=== PATIENT | female | born 1990 | race Caucasian/White ===

== ENCOUNTER 2016-05-29 09:36 | Outpatient (RCR) | payer MEDICAID | END 2016-06-16 | disposition home or self-care (01) | LOC: M OUTALCOH 09:36 | PROVIDERS: ATTEND Psychiatry & Neurology Psychiatry | DX: F16.20 Hallucinogen dependence, uncomplicated (principal); F14.20 Cocaine dependence, uncomplicated; F11.10 Opioid abuse, uncomplicated; F15.20 Other stimulant dependence, uncomplicated; F17.200 Nicotine dependence, unspecified, uncomplicated ==

== ENCOUNTER → 2016-11-12 | Outpatient (CLI) | payer MEDICAID | LOC: M OUTALCOH 07:34 | PROVIDERS: ATTEND Psychiatry & Neurology Psychiatry | DX: Z13.9 Encounter for screening, unspecified (principal); F16.20 Hallucinogen dependence, uncomplicated; F14.20 Cocaine dependence, uncomplicated; F11.20 Opioid dependence, uncomplicated; F15.20 Other stimulant dependence, uncomplicated ==

== ENCOUNTER 2016-12-08 09:00 | Outpatient (RCR) | payer MEDICAID | END 2016-12-14 | LOC: M OUTALCOH 09:00 | PROVIDERS: ATTEND Psychiatry & Neurology Psychiatry | DX: F16.20 Hallucinogen dependence, uncomplicated (principal); F14.20 Cocaine dependence, uncomplicated; F11.20 Opioid dependence, uncomplicated; F15.20 Other stimulant dependence, uncomplicated; F17.200 Nicotine dependence, unspecified, uncomplicated ==

== ENCOUNTER 2017-01-13 09:00 | Outpatient (RCR) | payer MEDICAID | END 2017-01-14 | LOC: M OUTALCOH 09:00 | PROVIDERS: ATTEND Psychiatry & Neurology Psychiatry | DX: F16.20 Hallucinogen dependence, uncomplicated (principal); F14.20 Cocaine dependence, uncomplicated; F11.20 Opioid dependence, uncomplicated; F15.20 Other stimulant dependence, uncomplicated; F17.200 Nicotine dependence, unspecified, uncomplicated ==

== ENCOUNTER 2017-01-29 10:00 | Outpatient (RCR) | payer MEDICAID | END 2017-02-13 | LOC: M OUTALCOH 10:00 | PROVIDERS: ATTEND Psychiatry & Neurology Psychiatry | DX: F16.20 Hallucinogen dependence, uncomplicated (principal); F14.20 Cocaine dependence, uncomplicated; F11.20 Opioid dependence, uncomplicated; F15.20 Other stimulant dependence, uncomplicated; F17.200 Nicotine dependence, unspecified, uncomplicated ==

== ENCOUNTER → 2017-05-14 | Outpatient (REF) | payer MEDICAID | LOC: M LAB REF 05-18 13:55 | DX: J02.9 Acute pharyngitis, unspecified (principal) ==

== ENCOUNTER → 2017-09-29 | Outpatient (CLI) | payer OTHER | LOC: M RAD 10:26 | DX: Z34.82 Encounter for supervision of other normal pregnancy, second trimester (principal); Z3A.18 18 weeks gestation of pregnancy | CPT/HCPCS: 76811 ==

== ENCOUNTER → 2017-10-13 | Outpatient (CLI) | payer OTHER | LOC: M RAD 10:11 | DX: Z34.82 Encounter for supervision of other normal pregnancy, second trimester (principal) | CPT/HCPCS: 76816 ==

== ENCOUNTER → 2017-12-06 | Outpatient (CLI) | payer OTHER ==
[2017-12-06 13:35] LABS: HEMATOCRIT 36.4 % (36.0-47.0); HEMOGLOBIN 12.3 g/dl (12.0-15.5); MEAN CORPUSCULAR HGB CONC 33.8 g/dl (32.0-36.5); MEAN CORPUSCULAR VOLUME 88.8 fl (80.0-96.0); PLATELET COUNT, AUTOMATED 265 10^3/uL (150-450); WHITE BLOOD COUNT 15.5 10^3/uL (4.0-10.0)
[2017-12-06 14:03] LABS: GLUCOSE CHALLENGE TEST 1 HOUR 150 MG/DL (LESS THAN 140)
== END ==
LOC: M SMT 10:09
DX: Z34.82 Encounter for supervision of other normal pregnancy, second trimester (principal); Z36.89 Encounter for other specified antenatal screening
CPT/HCPCS: 82950

== ENCOUNTER → 2018-01-27 | Outpatient (REF) | payer OTHER | LOC: M LAB REF 17:26 | DX: Z34.03 Encounter for supervision of normal first pregnancy, third trimester (principal); Z36.85 Encounter for antenatal screening for Streptococcus B | CPT/HCPCS: 87081 ==

== ENCOUNTER → 2018-02-01 | Outpatient (CLI) | payer OTHER ==
[2018-02-01 09:06] LABS: GLUCOSE, FASTING 97 MG/DL (LESS THAN 95)
[2018-02-01 11:01] LABS: 1 HR GLUCOSE 183 MG/DL (LESS THAN 180)
[2018-02-01 11:08] LABS: 2 HR GLUCOSE 175 MG/DL (LESS THAN 155)
[2018-02-01 12:45] LABS: 3 HR GLUCOSE 105 MG/DL (LESS THAN 140)
== END ==
LOC: M LAB 08:02
DX: Z34.83 Encounter for supervision of other normal pregnancy, third trimester (principal); R73.02 Impaired glucose tolerance (oral)
CPT/HCPCS: 82951

== ENCOUNTER → 2018-02-22 | Outpatient (REF) | payer OTHER ==
[2018-02-22 19:25] LABS: TOTAL PROTEIN,RANDOM URINE 36.4 MG/DL (0.0-12.0)
== END ==
LOC: M LAB REF 16:37
DX: R03.0 Elevated blood-pressure reading, without diagnosis of hypertension (principal); O24.429 Gestational diabetes mellitus in childbirth, unspecified control

== ENCOUNTER 2018-02-24 09:32 | Inpatient (IN) | payer OTHER ==
[2018-02-24 11:23] LABS: HEMATOCRIT 37.9 % (36.0-47.0); HEMOGLOBIN 12.8 g/dl (12.0-15.5); MEAN CORPUSCULAR HEMOGLOBIN 29.3 pg (27.0-33.0); MEAN CORPUSCULAR HGB CONC 33.8 g/dl (32.0-36.5); MEAN CORPUSCULAR VOLUME 86.7 fl (80.0-96.0); PLATELET COUNT, AUTOMATED 273 10^3/uL (150-450); RED BLOOD COUNT 4.37 10^6/uL (4.00-5.40); RED CELL DISTRIBUTION WIDTH 12.8 % (11.5-14.5); WHITE BLOOD COUNT 15.8 10^3/uL (4.0-10.0)
[2018-02-24 11:43] LABS: ALT/SGPT 13 U/L (12-78); AST/SGOT 13 U/L (7-37); BILIRUBIN,TOTAL 0.3 MG/DL (0.2-1.0); CREATININE FOR GFR 0.61 MG/DL (0.55-1.30); GLOMERULAR FILTRATION RATE > 60.0 (>60); LDH LACTATE DEHYDROGENASE 193 U/L (84-246); URIC ACID 4.4 MG/DL (2.6-6.0)
[2018-02-24] MEDS: miSOPROStol 50 MCG 1/2 TAB (S0191) PO ×2 (11:52→16:15)
[2018-02-24] MEDS: miSOPROStol 50 MCG 1/2 TAB (S0191) PV (20:37)
[2018-02-24] MEDS: BUTORPHANOL 2 MG/ML INJ (J0595) IV (22:30)
[2018-02-25] MEDS: miSOPROStol 50 MCG 1/2 TAB (S0191) PO (02:14)
[2018-02-25 07:49] LABS: HEMATOCRIT 37.1 % (36.0-47.0); HEMOGLOBIN 12.6 g/dl (12.0-15.5); MEAN CORPUSCULAR HEMOGLOBIN 29.6 pg (27.0-33.0); MEAN CORPUSCULAR VOLUME 87.1 fl (80.0-96.0); PLATELET COUNT, AUTOMATED 230 10^3/uL (150-450); RED BLOOD COUNT 4.26 10^6/uL (4.00-5.40); RED CELL DISTRIBUTION WIDTH 12.8 % (11.5-14.5); WHITE BLOOD COUNT 14.8 10^3/uL (4.0-10.0)
[2018-02-25 08:25] LABS: ALT/SGPT 10 U/L (12-78); AST/SGOT 13 U/L (7-37); BILIRUBIN,TOTAL 0.4 MG/DL (0.2-1.0); GLOMERULAR FILTRATION RATE > 60.0 (>60); LDH LACTATE DEHYDROGENASE 163 U/L (84-246); URIC ACID 4.5 MG/DL (2.6-6.0)
[2018-02-25] MEDS: PRENATAL VITAMINS CHEWABLE TABLET PO (09:00)
[2018-02-25] MEDS ORDERED: LR 1,000 ML IV (09:00)
[2018-02-25] MEDS: AZITHROMYCIN INJ 500 MG, VIAL MATE ADAPTER 1 EACH in D5W 250 ML IV (09:44)
[2018-02-25] MEDS: BICITRA 30ML SOLN UDC PO (10:28)
[2018-02-25] MEDS ORDERED: MORPHINE PRES-FREE INJ 10 MG/10 ML VIAL (J2274) As Ordered (10:29)
[2018-02-25] MEDS ORDERED: fentaNYL 100 MCG/2 ML INJECTION (J3010) As Ordered (10:30)
[2018-02-25] MEDS ORDERED: FLUMAZENIL 0.5 MG/5 ML VIAL As Ordered (10:30)
[2018-02-25] MEDS ORDERED: ONDANSETRON 4MG/2ML VIAL (J2405) As Ordered (10:31)
[2018-02-25] MEDS ORDERED: PHENYLephrine HCL 500 MCG/5 ML (100MCG/ML) SYRINGE (J2370) As Ordered (11:24)
[2018-02-25 11:25] LABS: CORD GAS ABE A -2.1; CORD GAS HCO3 A 26.6 MEQ/L; CORD GAS PCO2 A 62.3 mmHg; CORD GAS PH A 7.249 UNITS; CORD GAS PO2 A 22.9 mmHg; CORD GAS SBC A 21.4 MEQ/L; CORD GAS TCO2 A 28.6 MEQ/L
[2018-02-25 11:26] LABS: CORD GAS ABE V -2.7; CORD GAS HCO3 V 23.4 MEQ/L; CORD GAS O2 SAT V 84.8 %; CORD GAS PCO2 V 45.3 mmHg; CORD GAS PH V 7.331 UNITS; CORD GAS PO2 V 43.5 mmHg; CORD GAS SBC V 21.9 MEQ/L; CORD GAS TCO2 V 24.8 MEQ/L
[2018-02-25] MEDS ORDERED: KETOROLAC 60 MG/2 ML VIAL (J1885) As Ordered (11:34)
[2018-02-25] MEDS: OXYTOCIN DRIP 30 UNITS in APPROPRIATE DILUENT 1 EA IV (11:42)
[2018-02-25] MEDS ORDERED: MEASLES,MUMPS,RUBELLA VACCINE INJ (MMR-II) (90707) SC (11:45)
[2018-02-25] MEDS ORDERED: MOM 30ML SUSPENSION UDC PO (11:45)
[2018-02-25] MEDS ORDERED: RHOGAM 300 MCG (1500 IU) INJ (J2790) IM (11:45)
[2018-02-25] MEDS ORDERED: PERCOCET 5MG/325MG TAB PO (12:15)
[2018-02-25] MEDS: LR 1,000 ML IV ×2 (12:15→13:30)
[2018-02-25] MEDS ORDERED: fentaNYL 100 MCG/2 ML INJECTION (J3010) IV (12:15)
[2018-02-25] MEDS ORDERED: ONDANSETRON 4MG/2ML VIAL (J2405) IV (12:15)
[2018-02-25] MEDS: NORCO, ANEXSIA 5/325MG TABLET (HYDROcodone/ACETAMINOPHEN) PO (18:55)
[2018-02-25] MEDS: IBUPROFEN 800 MG TAB PO (20:41)
[2018-02-25] MEDS: DOCUSATE SODIUM 100 MG CAP PO (20:41)
[2018-02-26] MEDS: IBUPROFEN 800 MG TAB PO ×3 (03:45→20:48)
[2018-02-26 07:01] LABS: HEMATOCRIT 32.2 % (36.0-47.0); HEMOGLOBIN 10.7 g/dl (12.0-15.5); MEAN CORPUSCULAR HEMOGLOBIN 29.4 pg (27.0-33.0); MEAN CORPUSCULAR HGB CONC 33.2 g/dl (32.0-36.5); MEAN CORPUSCULAR VOLUME 88.5 fl (80.0-96.0); PLATELET COUNT, AUTOMATED 242 10^3/uL (150-450); RED BLOOD COUNT 3.64 10^6/uL (4.00-5.40); RED CELL DISTRIBUTION WIDTH 12.9 % (11.5-14.5); WHITE BLOOD COUNT 14.2 10^3/uL (4.0-10.0)
[2018-02-26] MEDS: PRENATAL VITAMINS CHEWABLE TABLET PO (08:09)
[2018-02-26] MEDS: DOCUSATE SODIUM 100 MG CAP PO ×2 (08:09→20:47)
[2018-02-26] MEDS: NORCO, ANEXSIA 5/325MG TABLET (HYDROcodone/ACETAMINOPHEN) PO ×2 (10:06→19:32)
[2018-02-27] MEDS: IBUPROFEN 800 MG TAB PO (04:01)
[2018-02-27] MEDS: NORCO, ANEXSIA 5/325MG TABLET (HYDROcodone/ACETAMINOPHEN) PO ×2 (04:02→09:56)
[2018-02-27] MEDS: PRENATAL VITAMINS CHEWABLE TABLET PO (09:55)
[2018-02-27] MEDS: DOCUSATE SODIUM 100 MG CAP PO (09:56)
[2018-02-27] MEDS: ADACEL/BOOSTRIX VACCINE (DIPHTH/PERTUSS/ACELL/TETANUS)0.5ML SYR (90715) IM (10:37)
== END 2018-02-27 10:40 | disposition home or self-care (01) | DRG 540 ==
LOC: M LDI 09:32 → M OBS 02-25 14:31
PROVIDERS: Advanced Practice Midwife
PROC: 10D00Z1 Extraction of Products of Conception, Low, Open Approach (ICD-10-PCS; principal; 2018-02-25 10:52)
PROC: 3E0P7GC Introduction of Other Therapeutic Substance into Female Reproductive, Via Natural or Artificial Opening (ICD-10-PCS; 2018-02-25 10:52)
DX: O14.94 Unspecified pre-eclampsia, complicating childbirth (principal); F17.210 Nicotine dependence, cigarettes, uncomplicated; O99.334 Smoking (tobacco) complicating childbirth; Z3A.39 39 weeks gestation of pregnancy; O61.0 Failed medical induction of labor; O32.8XX0 Maternal care for other malpresentation of fetus, not applicable or unspecified; Z37.0 Single live birth

== ENCOUNTER → 2019-11-02 | Outpatient (REF) | payer OTHER ==
[~2019-11-02] MED LIST: IBUP80TA PO; PERCOCET PO; PRENTAB9 PO
[2019-11-02 18:45] LABS: HEMATOCRIT 42.3 % (36.0-47.0); HEMOGLOBIN 14.2 g/dl (12.0-15.5); MEAN CORPUSCULAR HEMOGLOBIN 29.5 pg (27.0-33.0); MEAN CORPUSCULAR HGB CONC 33.6 g/dl (32.0-36.5); MEAN CORPUSCULAR VOLUME 87.9 fl (80.0-96.0); PLATELET COUNT, AUTOMATED 306 10^3/uL (150-450); RED BLOOD COUNT 4.81 10^6/uL (4.00-5.40); WHITE BLOOD COUNT 12.5 10^3/uL (4.0-10.0)
[2019-11-02 19:42] LABS: HCG, SERUM QUANTITATIVE 31550 MIU/ML
[2019-11-03 17:17] LABS: HEPATITIS B SURFACE ANTIGEN NEGATIVE (NEGATIVE)
[2019-11-03 17:45] LABS: HEPATITIS C VIRUS ABY INDEX 0.2 INDEX (<0.8); HIV 1&2 SCREEN CENTAUR NEGATIVE (NEGATIVE)
== END ==
LOC: M LAB REF 16:17
PROVIDERS: ATTEND Obstetrics & Gynecology
DX: O36.80X0 Pregnancy with inconclusive fetal viability, not applicable or unspecified (principal)

== ENCOUNTER → 2020-01-09 | Outpatient (REF) | payer OTHER ==
[2020-01-09 17:15] LABS: CHLAMYDIA DNA AMPLIFICATION NEGATIVE (NEGATIVE); GC DNA AMPLIFICATION NEGATIVE (NEGATIVE)
== END ==
LOC: M LAB REF 11:00
PROVIDERS: ATTEND Advanced Practice Midwife
DX: Z00.00 Encounter for general adult medical examination without abnormal findings (principal)

== ENCOUNTER → 2020-01-15 | Outpatient (CLI) | payer OTHER ==
--- NOTE | 2020-02-12 09:35 | REP ---
COMPLETE OBSTETRICAL ULTRASOUND CLINICAL: Anatomical evaluation. TECHNIQUE: Real-time dietz scale and color Doppler evaluation using curved array transducer. FINDINGS: Ultrasound examination demonstrates single live intrauterine in transverse lie with headache to maternal right. Placenta noted posteriorly and grade 0. No evidence for placenta previa or abruption. Amniotic fluid volume is subjectively normal. Cervix measures 4.1 cm in length and appears closed. Gestational age by last menstrual period (LMP) 20 weeks 1 day with estimated date of delivery 06/02/2020. heart rate 150 beats per minute. MEASURES: BPD 46 mm 20 weeks 0 days HC 173 mm 20 weeks 0 days AC 150 mm 20 weeks 2 days FL 31 mm 20 weeks 3 days HL 30 mm 20 weeks 0 day Estimated age by current measurements 20 weeks 1 day with estimated date of delivery 06/02/2020. Estimated weight 330 grams (41st percentile). Anatomical assessment demonstrates normal cisterna magna, cavum, thalamus, stomach, kidney/bladder, four chamber heart/ventricular outflow tract, three- vessel cord/cord insertion, and extremities. Limited evaluation of the spine and facial features noted. IMPRESSION: Single live intrauterine in transverse lie demonstrating appropriate interval growth. Limited evaluation of the spine and facial features warrants reevaluation. Remainder of the anatomical assessment is complete and normal. MTDD
== END ==
LOC: M WHC 13:25
PROVIDERS: ATTEND Advanced Practice Midwife
DX: Z34.80 Encounter for supervision of other normal pregnancy, unspecified trimester (principal); Z3A.00 Weeks of gestation of pregnancy not specified

== ENCOUNTER → 2020-01-29 | Outpatient (CLI) | payer OTHER ==
[2020-01-29 15:03] LABS: HEMATOCRIT 39.5 % (36.0-47.0); MEAN CORPUSCULAR HEMOGLOBIN 29.4 pg (27.0-33.0); MEAN CORPUSCULAR HGB CONC 32.9 g/dl (32.0-36.5); MEAN CORPUSCULAR VOLUME 89.4 fl (80.0-96.0); PLATELET COUNT, AUTOMATED 310 10^3/uL (150-450); RED BLOOD COUNT 4.42 10^6/uL (4.00-5.40); WHITE BLOOD COUNT 17.3 10^3/uL (4.0-10.0)
== END ==
LOC: M PLALAB 11:35
PROVIDERS: ATTEND Advanced Practice Midwife
DX: O99.210 Obesity complicating pregnancy, unspecified trimester (principal); Z3A.00 Weeks of gestation of pregnancy not specified

== ENCOUNTER → 2020-03-01 | Outpatient (CLI) | payer OTHER ==
--- NOTE | 2020-03-01 12:22 | REP ---
INDICATION: F/U ANATOMY COMPARISON: 01/15/2020 TECHNIQUE: Transabdominal obstetrical ultrasound with color Doppler evaluation. FINDINGS: Examination demonstrates a single live intrauterine in cephalic presentation. motion is identified by technologist. Placenta is noted posterior and grade 1 without evidence for placenta previa or abruption. Amniotic fluid volume is normal. Cervix measures 3.0 cm in length and appears closed. Nuchal cord noted. Gestational age by 1st U/S 26 weeks 4 days with MINA 06/03/2020. Gestational age by current measurements 26 weeks 3 days with MINA 06/04/2020. FHR equals 144 beats per minute. Estimated weight 951 grams (32ndpercentile). Anatomical assessment demonstrates normal spine, and facial features. IMPRESSION: 1. Single live intrauterine in cephalic presentation demonstrating appropriate interval growth and estimated weight. 2. Nuchal cord noted. 3. Current examination demonstrates normal spine and facial features. <Electronically signed by Ancelmo Figueroa > 03/01/20 [id number]
== END ==
LOC: M WHC 08:32
PROVIDERS: ATTEND Obstetrics & Gynecology
DX: O34.211 Maternal care for low transverse scar from previous cesarean delivery (principal); Z36.2 Encounter for other antenatal screening follow-up; Z3A.26 26 weeks gestation of pregnancy

== ENCOUNTER → 2020-04-08 | Outpatient (CLI) | payer OTHER ==
--- NOTE | 2020-04-08 11:45 | REP ---
INDICATION: GESTATIONAL DIABETEES,GROWTH COMPARISON: 03/01/2020 TECHNIQUE: Transabdominal obstetrical ultrasound with color Doppler evaluation. FINDINGS: Examination demonstrates a single live intrauterine in cephalic presentation. motion is identified by technologist. Placenta is noted posterior and grade 2 without evidence for placenta previa or abruption. Amniotic fluid volume is normal. Cervix measures 3.3 cm in length and appears closed.. Gestational age by 1st ultrasound 32 weeks 0 days with MINA 06/03/2020. Gestational age by current measurements 32 weeks 2 days with MINA 06/01/2020. FHR equals 140 beats per minute. BPD: 7.9 cm 31 weeks 5 days HC: 29.8 cm 33 weeks 0 days AC: 28.6 cm 32 weeks 4 days FL: 6.1 cm 31 weeks 5 days HL: 5.7 cm 32 weeks 6 days HC/AC: 1.04 Estimated weight 1942 grams (44thpercentile). ELIZABETH: 16.2 cm (8.6-24.2) IMPRESSION: Single live advanced gestation in cephalic presentation demonstrating appropriate estimated weight and growth. Amniotic fluid volume is normal. <Electronically signed by Ancelmo Figueroa > 04/08/20 [id number]
== END ==
LOC: M WHC 10:57
PROVIDERS: ATTEND Advanced Practice Midwife
DX: O24.415 Gestational diabetes mellitus in pregnancy, controlled by oral hypoglycemic drugs (principal); Z3A.32 32 weeks gestation of pregnancy

== ENCOUNTER → 2020-05-07 | Outpatient (REF) | payer OTHER | LOC: M PLALAB 12:10 | PROVIDERS: ATTEND Obstetrics & Gynecology | DX: Z53.29 Procedure and treatment not carried out because of patient's decision for other reasons (principal); Z3A.36 36 weeks gestation of pregnancy ==

== ENCOUNTER → 2020-05-07 | Outpatient (REF) | payer OTHER | LOC: M SFHCWAGY 17:00 | PROVIDERS: ATTEND Obstetrics & Gynecology | DX: Z36.89 Encounter for other specified antenatal screening (principal); Z3A.37 37 weeks gestation of pregnancy ==

== ENCOUNTER → 2020-05-15 | Outpatient (CLI) | payer OTHER ==
--- NOTE | 2020-05-15 15:07 | REP ---
INDICATION: GROWTH/ELIZABETH/GESTATIONAL DIABETES COMPARISON: 04/08/2020 TECHNIQUE: Transabdominal obstetrical ultrasound with color Doppler evaluation. FINDINGS: Examination demonstrates a single live intrauterine in cephalic presentation. motion is identified by technologist. Placenta is noted posterior and grade 3 without evidence for placenta previa or abruption. Amniotic fluid volume is normal. Cervix measures 3.8 cm in length and appears closed.. Gestational age by LMP thirty-seven weeks 2 days with MINA 06/03/2020. Gestational age by current measurements 36 weeks 5 days with MINA 06/07/2020. FHR equals 132 beats per minute. BPD: 9.3 cm 37 weeks 5 days HC: 32.4 cm 36 weeks 4 days AC: 32.9 cm 36 weeks 5 days FL: 7.1 cm 36 weeks 3 days HL: 6.2 cm 35 weeks 6 days HC/AC: 0.98 Estimated weight 3029 grams (41stpercentile). ELIZABETH: 13.4 cm (7.4-24.2) IMPRESSION: Single live advanced gestation in cephalic presentation demonstrating appropriate estimated weight and growth. <Electronically signed by Ancelmo Figueroa > 05/15/20 [id number]
== END ==
LOC: M WHC 13:32
PROVIDERS: ATTEND Advanced Practice Midwife
DX: Z36.9 Encounter for antenatal screening, unspecified (principal); O24.415 Gestational diabetes mellitus in pregnancy, controlled by oral hypoglycemic drugs; Z3A.37 37 weeks gestation of pregnancy

== ENCOUNTER 2020-05-27 07:30 | Inpatient (IN) | payer OTHER ==
[~2020-05-27] VITALS: Ht 154.9 cm; Wt 116.6 kg
[~2020-05-27 07:30] MED LIST changes: -NOVOINJ12 SC
[2020-05-28] MEDS ORDERED: NOVOINJ12 SC (09:12)
[2020-05-30] MEDS ORDERED: ceFAZolin SOD 2 GM in IV 1 EA IV ONE (05:30)
[2020-05-30] MEDS ORDERED: LR 1,000 ML IV ONE (05:30)
[2020-05-30] MEDS ORDERED: BICITRA 30ML SOLN UDC PO ONE (05:30)
[2020-05-30] MEDS ORDERED: LR 1,000 ML IV SCH (05:30)
[2020-05-30 06:02] LABS: HEMATOCRIT 37.4 % (36.0-47.0); HEMOGLOBIN 12.1 g/dl (12.0-15.5); MEAN CORPUSCULAR HEMOGLOBIN 27.8 pg (27.0-33.0); MEAN CORPUSCULAR HGB CONC 32.4 g/dl (32.0-36.5); MEAN CORPUSCULAR VOLUME 85.8 fl (80.0-96.0); PLATELET COUNT, AUTOMATED 279 10^3/uL (150-450); RED BLOOD COUNT 4.36 10^6/uL (4.00-5.40); WHITE BLOOD COUNT 14.6 10^3/uL (4.0-10.0)
[2020-05-30] MEDS ORDERED: MORPHINE PRES-FREE INJ 10 MG/10 ML VIAL (J2274) As Ordered ONE (07:07)
[2020-05-30] MEDS ORDERED: LIDOCAINE 2% INJ 100 MG/5 ML SYRINGE As Ordered ONE (07:07)
[2020-05-30] MEDS ORDERED: OXYTOCIN 30 UNITS IN 0.9% NaCl 500ML IV BAG (J2590) As Ordered ONE (07:08)
[2020-05-30] MEDS ORDERED: OXYTOCIN INJ 10 UNITS/ML VIAL (J2590) As Ordered ONE (07:08)
[2020-05-30] MEDS ORDERED: ePHEDrine SULFATE 25 MG/5 ML(5MG/ML) SYRINGE As Ordered ONE (07:09)
[2020-05-30] MEDS ORDERED: dexameTHASONE 4 MG/ML 1ML VIAL (J1100 PER 1MG) As Ordered ONE (07:09)
[2020-05-30] MEDS ORDERED: ONDANSETRON 4MG/2ML VIAL As Ordered ONE (07:09)
[2020-05-30] MEDS ORDERED: KETOROLAC 60MG 2ML VIAL As Ordered ONE (07:09)
[2020-05-30] MEDS ORDERED: METOCLOPRAMIDE INJ 10MG/2ML VIAL (J2765 PER 1) IV PRN ×2 (07:47→09:45)
[2020-05-30] MEDS ORDERED: ONDANSETRON 4MG/2ML VIAL IV PRN ×2 (07:47→09:45)
[2020-05-30] MEDS ORDERED: diphenhydrAMINE 50MG/ML VIAL (J1200) IV PRN ×2 (07:47→09:45)
[2020-05-30] MEDS ORDERED: NALBUPHINE HCL 10 MG/ML AMP (J2300) IV PRN (07:47)
[2020-05-30] MEDS ORDERED: NALOXONE INJ 0.4MG/1ML VIAL (J2310 PER 1MG) IV PRN ×2 (07:47)
[2020-05-30] MEDS: PRENATAL VITAMINS CHEWABLE TABLET PO SCH (09:00)
[2020-05-30] MEDS ORDERED: OXYTOCIN DRIP 30 UNITS in IV 1 EA IV SCH (09:34)
[2020-05-30] MEDS ORDERED: fentaNYL 100 MCG/2 ML INJECTION (J3010) IV PRN (09:45)
[2020-05-30] MEDS ORDERED: HYDROMORPHONE HCL 0.5 MG/ 0.5 ML SYRINGE (J1170 PER 1) IV PRN (09:45)
[2020-05-30] MEDS ORDERED: MEPERIDINE INJ 25 MG/ML VIAL (J2175) IV PRN (09:45)
[2020-05-30] MEDS ORDERED: PERCOCET 5MG/325MG TAB PO PRN ×2 (09:45)
[2020-05-30] MEDS ORDERED: RHOGAM 300 MCG (1500 IU) INJ (J2790) IM SCH (09:45)
[2020-05-30] MEDS ORDERED: MEASLES,MUMPS,RUBELLA VACCINE INJ (MMR-II) (90707) SC SCH (09:45)
[2020-05-30] MEDS ORDERED: ONDANSETRON 4 MG ORAL DISINTEGRATING TAB PO PRN (09:45)
[2020-05-30 11:10] VITALS: BP 134/67
[2020-05-30 11:59] VITALS: BP 116/57
[2020-05-30 13:13] VITALS: BP 121/58
[2020-05-30 14:08] VITALS: BP 128/66
--- NOTE | 2020-05-30 14:44 | RO ---
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 PREOPERATIVE DIAGNOSES: 1. History of prior section at term. 2. Satisfied parity. POSTOPERATIVE DIAGNOSES: 1. History of prior section at term. 2. Satisfied parity. PROCEDURES: 1. Repeat low transverse section. 2. [place] bilateral tubal ligation. MATERIAL FORWARDED TO THE LAB FOR EXAMINATION: Portions of bilateral fallopian tubes. SURGEON: Dr. Elsie Araya. NEONATAL CRITICAL CARE NURSE: Dr. Ramy Pinto whose assistance was necessary for exposure/retraction. He helped assist with the delivery of the baby and subsequent closure of tissue layers. ANESTHESIA: spinal INDICATION FOR OPERATION: Nerissa is a 29-year-old G2, now P2-0-0-2 at 39 weeks 4 days with a history of a prior section desiring repeat. She also had satisfied parity and desired a tubal ligation, which we had discussed during her . course significant for A2 GDM which was managed with insulin, obesity, and tobacco use. DESCRIPTION OF PROCEDURE FINDINGS: Infant was in OA position, Apgars 8 and 9, weight 3680 grams or 8 pounds 2 ounces. She had normal appearing uterus, ovaries, and fallopian tubes. INFECTION CLASS: 2. ESTIMATED BLOOD LOSS: 500 mL. FLUIDS: 2500 mL of Lactated Ringers. URINE OUTPUT: 30 mL of yellow clear urine. DESCRIPTION OF PROCEDURE: The patient was taken to the operating room. She had a reactive NST prior. Spinal anesthesia was administered. Dorsey and bilateral sequential compression devices were placed. She received 2 grams of IV Ancef prophylactically. She was prepped and draped in normal sterile fashion in the dorsal supine position with a left lateral tilt. Time out was performed to confirm patient name, date of , and procedure and indication. Surgical team, nursing team, and anesthesia were all in agreement. Spinal anesthesia was found to be adequate using an Allis clamp. Pfannenstiel skin incision was made with a scalpel and carried through to the underlying layer of fascia using the Bovie cautery. Fascia was incised in the midline, and the incision was extended laterally with [place] scissors. Superior and inferior aspects of the fascial incision were grasped with Emil clamps, elevated, and the underlying rectus muscles were dissected off bluntly and sharply. Peritoneum was entered digitally, and the rectus muscles were in the midline. Peritoneal incision was extended superiorly and inferiorly with good visualization of the bladder. We inserted a Mobius self-retaining retractor to assist. Vesicouterine peritoneum was identified, grasped with pickups, and entered sharply with Metzenbaum scissors. The incision was extended laterally, and a bladder flap was created digitally. Lower uterine segment was scored in a transverse fashion with a scalpel. Uterus was entered bluntly, and the incision was extended with traction with clear amniotic fluid noted. 's head was elevated to the level of the incision. Fundal pressure was applied. Head was delivered atraumatically in the OA position. Anterior shoulder, posterior shoulder, and corpus were delivered without difficulty. Nose and mouth were suctioned with bulb suction. Cord was clamped x2 and cut. Infant was handed off to the awaiting nursing team. Cord blood was obtained for maternal blood type. Placenta was removed with uterine massage and traction on the cord. Uterus was exteriorized to remove some sticky adherent membranes which were removed in their entirety. The uterus was cleared of all clot and debris. Uterine incision was repaired with 0 Vicryl suture in a running locking fashion, and a second layer of 0 Monocryl was used to close the hysterotomy in an imbricating fashion. Uterine incision was inspected. Hemostasis was noted. At this time, right and left fallopian tubes were visualized without abnormality. [place] tubal ligation was performed on the right followed by the left fallopian tube using 0 plain gut suture. Transected portions of the fallopian tube were sent off to pathology. Uterus was returned to the abdomen. All clot was cleared. Liseth was applied to hysterotomy. Hemostasis was noted. Mobius retractor removed. Peritoneum was closed using 3-0 Vicryl suture in a running fashion. Rectus muscles were reapproximated with [id number] sutures using 0 Vicryl suture. Fascia was reapproximated with 0 Vicryl suture in a running fashion. Subcutaneous tissue was copiously irrigated. Jair's fascia was reapproximated using 3-0 Vicryl suture in a running fashion. Skin edges were reapproximated using 4-0 Monocryl in a running subcuticular stitch. Incision was cleaned with a wet lap and dried with a dry lap. Steri-Strips were applied in the usual fashion, and Optifoam dressing was applied over the Steri-Strips. Vagina was cleared of all blood clot without active bleeding noted. Fundus was firm at U-1 cm. All counts were correct x2. The procedure was without complications. Patient tolerated the procedure well. She was taken to the recovery room on Labor and Delivery in stable condition. KEERTHI
[2020-05-30] MEDS: KETOROLAC 30 MG/ML 1ML VIAL IV SCH ×2 (16:03→20:04)
[2020-05-30 18:11] VITALS: BP 123/87
[2020-05-30] MEDS: DOCUSATE SODIUM 100MG CAPSULE PO SCH (20:04)
[2020-05-30 22:05] VITALS: BP 144/61
[2020-05-31 02:00] VITALS: BP 147/69
[2020-05-31] MEDS: KETOROLAC 30 MG/ML 1ML VIAL IV SCH (03:45)
[2020-05-31] MEDS ORDERED: IBUP80TA PO (04:39)
[2020-05-31] MEDS ORDERED: DOK1CAP7 PO (04:39)
[2020-05-31] MEDS ORDERED: PERCOCET PO (04:39)
[2020-05-31 05:44] VITALS: BP 144/74
--- NOTE | 2020-05-31 06:47 | IPNPDOC ---
Progress Note Date of Service: May 31, 2020 Day#: 1 Progress Note POD 1/PPD 1 SUBJECT: Nerissa is a 29yo s/p uncomplicated RLTCS with BTL on 05/30, doing well post-op/ day # 1. PMhx significant for A2GDM and obesity. She has been ambulating, voiding spontaneously without issue and tolerating regular diet. Bottle feeding without issue. Reports lochia is like a normal period. Pain well controlled. No fevers/chills/nausea/vomiting/chest pain/shortness of breath. No MORLEY/vision changes/RUQ pain. OBJECTIVE: VITAL SIGNS: BP's normal to mild range, afebrile. Alert and oriented times three. Abdomen: Fundus firm at U-2. Soft, appropriately tender to palpation. Pfannenstiel incision is covered by dry optifoam dressing, no obvious erythema of surrounding tissue Extremities: no pain with palpation of calves Labs: pre-op H/H 12.1/37.4 post-op H/H pending ASSESSMENT: Nerissa is a 29yo s/p uncomplicated RLTCS with BTL on 05/30, doing well post-op/ day # 1. PMhx significant for A2GDM and obesity. BP's normal to mild range but no sx of pre-E. Afebrile, hemodynamically stable with no evidence of infection. PLAN: 1. Routine /post-op care 2. Percocet and Motrin for pain. 3. Encourage ambulation and use of IS 4. Regular diet 5. am CBC with CMP to check creatinine/LFTs 2/2 mild range bp's 6. Likely d/c tomorrow if meeting all criteria Elsie Araya MD VS, I&O, 24H, Fishbone Vital Signs/I&O Vital Signs Date Time Temp Pulse Resp B/P (MAP) Pulse Ox O2 Delivery O2 Flow Rate FiO2 05/31/20 05:44 98.6 94 20 144/74 (97) 97 Room Air I&O- Last 24 Hours up to 6 AM 05/31/20 06:00 Intake Total 1380 ml Output Total 1150 ml Balance 230 ml Elsie Araya MD May 31, 2020 06:47
[2020-05-31 07:23] LABS: HEMATOCRIT 29.9 % (36.0-47.0); MEAN CORPUSCULAR HEMOGLOBIN 28.2 pg (27.0-33.0); MEAN CORPUSCULAR HGB CONC 32.1 g/dl (32.0-36.5); MEAN CORPUSCULAR VOLUME 87.7 fl (80.0-96.0); PLATELET COUNT, AUTOMATED 232 10^3/uL (150-450); RED BLOOD COUNT 3.41 10^6/uL (4.00-5.40); WHITE BLOOD COUNT 12.8 10^3/uL (4.0-10.0)
[2020-05-31 07:35] LABS: HEMOGLOBIN 9.6 g/dl (12.0-15.5)
[2020-05-31 07:50] LABS: ALT/SGPT 14 U/L (12-78); BILIRUBIN,TOTAL 0.4 MG/DL (0.2-1.0); BLOOD UREA NITROGEN 12 MG/DL (7-18); CALCIUM LEVEL 8.6 MG/DL (8.5-10.1); CARBON DIOXIDE LEVEL 27 MEQ/L (21-32); CHLORIDE LEVEL 105 MEQ/L (98-107); CREATININE FOR GFR 0.73 MG/DL (0.55-1.30); GLOMERULAR FILTRATION RATE > 60.0 (>60); GLUCOSE, FASTING 77 MG/DL (70-100); POTASSIUM SERUM 4.1 MEQ/L (3.5-5.1); SODIUM LEVEL 137 MEQ/L (136-145); TOTAL PROTEIN 5.4 GM/DL (6.4-8.2)
[2020-05-31] MEDS: PRENATAL VITAMINS CHEWABLE TABLET PO SCH (08:06)
[2020-05-31] MEDS: DOCUSATE SODIUM 100MG CAPSULE PO SCH ×2 (08:06→21:51)
[2020-05-31 10:00] VITALS: BP 130/60
[2020-05-31] MEDS: IBUPROFEN 800 MG TAB PO SCH ×2 (11:09→19:44)
[2020-05-31] MEDS: PERCOCET 5MG/325MG TAB PO PRN ×2 (11:58→16:56)
[2020-05-31 14:00] VITALS: BP 139/71
[2020-05-31 18:00] VITALS: BP 128/72
[2020-05-31 22:00] VITALS: BP 152/78
[2020-06-01] MEDS: PERCOCET 5MG/325MG TAB PO PRN (00:12)
[2020-06-01 02:00] VITALS: BP 139/76
[2020-06-01] MEDS: IBUPROFEN 800 MG TAB PO SCH ×2 (03:30→11:14)
[2020-06-01 06:00] VITALS: BP 136/89
--- NOTE | 2020-06-01 07:08 | IPNPDOC ---
Text Note Date of Service The patient was seen on 06/01/20. NOTE Inpatient Subjective: Nerissa is a 29 y/o s/p Repeat C/Section with BTL, Day 2 Postoperatively. Reports voiding spontaneously without issue, tolerating regular diet well, and ambulating without difficulty. Passing flatus. Reports lochia like a normal period, no further clots. Pain well controlled on Percocet and Motrin. Formula feeding . Denies headache, visual changes, SOB, chest pain, epigastric pain. Objective: Vital Signs: Normotensive, afebrile. General: Alert and oriented x3. Respiratory: Regular rate, no accessory muscle use. Abdomen: Soft, nontender. No distention. Fundus firm, midline at U-1, minimal lochia. Dressing dry and intact, 2 less than 1cm spots of bleeding on dressing. Extremities: Mild non-pitting edema bilaterally. No calf tenderness. Assessment: Postoperative Day #2 Plan: 1. Discharge home tomorrow, may go home today if infant discharged. 2. Percocet and Motrin as needed. 3. Encourage ambulation in room. 4. Normal nursing care. VS,Fishbone, I+O VS, Fishbone, I+O Laboratory Tests 05/31/20 07:07 Vital Signs Date Time Temp Pulse Resp B/P (MAP) Pulse Ox O2 Delivery O2 Flow Rate FiO2 06/01/20 06:00 98.7 89 16 136/89 (105) 99 Room Air I&O- Last 24 Hours up to 6 AM 06/01/20 06:00 Output Total 500 ml Balance -500 ml Jada Interiano CNM Jun 01, 2020 07:08
[2020-06-01] MEDS: PRENATAL VITAMINS CHEWABLE TABLET PO SCH (09:00)
--- NOTE | 2020-06-01 12:22 | DS.PDOC ---
Discharge Summary General Date of Admission May 30, 2020 at 05:04 Date of Discharge 06/01/20 Discharge Summary DATE OF ADMISSION: 05/30/2020 DATE OF DISCHARGE:, 06/01/2020 ADMISSION DIAGNOSIS:. 39+4 weeks gestation, history of low transverse section 1. Satisfied parity and gestational diabetes mellitus, White's classification A2/insulin-dependent DISCHARGE DIAGNOSIS: Same DISCHARGE SUMMARY: The patient was admitted at 39+4 weeks gestation for scheduled repeat low transverse section, bilateral tubal ligation. The section delivery was uncomplicated. Her postoperative course was uncomplicated as well. On postoperative day #2, she was meeting all discharge criteria. Of note, insulin therapy was discontinued immediately postop. PHYSICAL EXAMINATION ON DATE OF DISCHARGE: Normotensive. Normal heart rate. Afebrile. HEART: Regular rate and rhythm. No murmurs, gallops, or rubs. LUNGS: Clear to auscultation bilaterally. ABDOMEN: Soft, nontender, nondistended. Incision bandage clean and dry. EXTREMITIES: Nonedematous, nontender. She was meeting all discharge criteria on postoperative day #2. We reviewed routine fever, infectious, pain, and bleeding precautions. She is to followup in 2 weeks for incision check. Her postoperative medications are Percocet, Motrin, and Colace. Vital Signs/I&Os Vital Signs Date Time Temp Pulse Resp B/P (MAP) Pulse Ox O2 Delivery O2 Flow Rate FiO2 06/01/20 06:00 98.7 89 16 136/89 (105) 99 Room Air I&O- Last 24 Hours up to 6 AM 06/01/20 05:59 Output Total 500 ml Balance -500 ml Discharge Medications Scheduled Docusate Sodium (Dok) 100 Mg Capsule, 100 MG PO BID Ibuprofen (Ibuprofen) 800 Mg Tablet, 800 MG PO Q8H No.137/Iron/Folic Acd ( Vitamin Tablet) 1 Tab Tab, 1 TAB PO DAILY, (Reported) Scheduled PRN Oxycodone/Acetaminophen (Oxycodone-Acetaminophen 5-325) 1 Each Tablet, 2 TAB PO Q6H PRN for SEVERE PAIN (PS 8-10) Allergies Coded Allergies: No Known Allergies (Verified , 05/30/20) FACUNDO SANTOYO DO Jun 01, 2020 12:22
== END 2020-06-01 13:10 | disposition home or self-care (01) | DRG 540 ==
LOC: M LDI 05-30 05:04 → M OBS 05-30 11:00
PROVIDERS: ADMIT Obstetrics & Gynecology; ATTEND Obstetrics & Gynecology
PROC: 0UL70ZZ Occlusion of Bilateral Fallopian Tubes, Open Approach (ICD-10-PCS; 2020-05-30)
PROC: 10D00Z1 Extraction of Products of Conception, Low, Open Approach (ICD-10-PCS; principal; 2020-05-30 07:30)
DX: O34.211 Maternal care for low transverse scar from previous cesarean delivery (principal); Z3A.39 39 weeks gestation of pregnancy; Z37.0 Single live birth; O24.424 Gestational diabetes mellitus in childbirth, insulin controlled; O99.334 Smoking (tobacco) complicating childbirth; F17.210 Nicotine dependence, cigarettes, uncomplicated; O99.214 Obesity complicating childbirth; E66.9 Obesity, unspecified; Z30.2 Encounter for sterilization

== ENCOUNTER → 2020-05-27 | Outpatient (CLI) | payer OTHER ==
[~2020-05-27] MED LIST changes: +NOVOINJ12 SC
== END ==
LOC: M LABSMTC 12:38
PROVIDERS: ATTEND Anesthesiology
DX: Z01.812 Encounter for preprocedural laboratory examination (principal); Z20.822 Contact with and (suspected) exposure to COVID-19

== ENCOUNTER → 2022-07-27 | Outpatient (REF) | payer OTHER ==
[~2022-07-27] MED LIST changes: +DOK1CAP4 PO; +NOVOINJ12 SC
[2022-07-27 15:26] LABS: BASO # 0.1 10^3/uL (0.0-0.2); BASO % 0.5 % (0.0-1.0); EOS # 0.4 10^3/uL (0.0-0.5); EOS % 3.6 % (0.0-3.0); HEMATOCRIT 46.9 % (36.0-47.0); LYMPH # 2.7 10^3/uL (1.5-5.0); MEAN CORPUSCULAR VOLUME 90.5 fl (80.0-96.0); MONO # 0.7 10^3/uL (0.0-0.8); MONO % 6.8 % (2.0-8.0); NEUTROPHILS # 6.8 10^3/uL (1.5-8.5); NEUTROPHILS % 63.7 % (36.0-66.0); PLATELET COUNT, AUTOMATED 299 10^3/uL (150-450); RED BLOOD COUNT 5.18 10^6/uL (4.00-5.40); WHITE BLOOD COUNT 10.6 10^3/uL (4.0-10.0)
[2022-07-27 15:43] LABS: ALBUMIN 3.6 G/DL (3.2-5.2); ALKALINE PHOSPHATASE 77 U/L (46-116); ALT/SGPT 20 U/L (7.0-40); AST/SGOT 17 U/L (<34); BILIRUBIN,TOTAL 0.6 MG/DL (0.3-1.2); BLOOD UREA NITROGEN 13 MG/DL (9-23); CALCIUM LEVEL 8.9 MG/DL (8.5-10.1); CARBON DIOXIDE LEVEL 29 MMOL/L (20-31); CHLORIDE LEVEL 104 MMOL/L (98-107); CHOLESTEROL LEVEL 175 MG/DL (<200); CHOLESTEROL RISK RATIO 4.83 (<5); CREATININE FOR GFR 0.68 MG/DL (0.55-1.30); FREE T4 1.23 NG/DL (0.89-1.76); GLOMERULAR FILTRATION RATE > 60.0 (>60); GLUCOSE, FASTING 101 MG/DL (60-100); HDL CHOLESTEROL 36.2 MG/DL (>40); LDL CHOLESTEROL 94.8 MG/DL (<100); NON-HDL-C 138.8 MG/DL; POTASSIUM SERUM 4.2 MMOL/L (3.5-5.1); SODIUM LEVEL 138 MMOL/L (136-145); TOTAL 25(OH) VITAMIN D 16.5 NG/ML (20.0-100.0); TOTAL PROTEIN 7.1 G/DL (5.7-8.2); TRIGLYCERIDES LEVEL 220 MG/DL (<150)
== END ==
LOC: M LAB REF 12:02
PROVIDERS: ATTEND Nurse Practitioner Family
DX: Z13.228 Encounter for screening for other metabolic disorders (principal)

== ENCOUNTER → 2022-10-08 | Outpatient (REF) | payer OTHER | LOC: M LAB REF 16:21 | PROVIDERS: ATTEND Nurse Practitioner Family | DX: E55.9 Vitamin D deficiency, unspecified (principal) ==

== ENCOUNTER → 2022-10-13 | Outpatient (CLI) | payer OTHER | LOC: M WHC 11:42 | PROVIDERS: ATTEND Nurse Practitioner Family | DX: N63.11 Unspecified lump in the right breast, upper outer quadrant (principal); N63.12 Unspecified lump in the right breast, upper inner quadrant ==

== ENCOUNTER 2023-07-19 19:32 | Emergency (ER) | payer OTHER ==
[2023-07-19 21:15] LABS: BASO # 0.1 10^3/uL (0.0-0.2); BASO % 0.5 % (0.0-1.0); EOS # 0.3 10^3/uL (0.0-0.5); EOS % 2.7 % (0.0-3.0); HEMATOCRIT 42.7 % (36.0-47.0); HEMOGLOBIN 14.6 g/dl (12.0-15.5); LYMPH # 3.3 10^3/uL (1.5-5.0); LYMPH % 28.1 % (24.0-44.0); MEAN CORPUSCULAR HEMOGLOBIN 29.7 pg (27.0-33.0); MEAN CORPUSCULAR HGB CONC 34.2 g/dl (32.0-36.5); MEAN CORPUSCULAR VOLUME 86.8 fl (80.0-96.0); MONO # 0.8 10^3/uL (0.0-0.8); MONO % 6.5 % (2.0-8.0); NEUTROPHILS # 7.2 10^3/uL (1.5-8.5); NEUTROPHILS % 61.9 % (36.0-66.0); PLATELET COUNT, AUTOMATED 294 10^3/uL (150-450); RED BLOOD COUNT 4.92 10^6/uL (4.00-5.40); WHITE BLOOD COUNT 11.6 10^3/uL (4.0-10.0)
[2023-07-19 21:33] LABS: LIPASE 23 U/L (12-53)
[2023-07-19 21:36] LABS: ALBUMIN 3.4 G/DL (3.2-5.2); ALKALINE PHOSPHATASE 84 U/L (46-116); ALT/SGPT 20 U/L (7.0-40); AST/SGOT 15 U/L (<34); BILIRUBIN,TOTAL 0.2 MG/DL (0.3-1.2); BLOOD UREA NITROGEN 15 MG/DL (9-23); CALCIUM LEVEL 8.7 MG/DL (8.5-10.1); CARBON DIOXIDE LEVEL 27 MMOL/L (20-31); CHLORIDE LEVEL 106 MMOL/L (98-107); CREATININE FOR GFR 0.68 MG/DL (0.55-1.30); GLOMERULAR FILTRATION RATE > 60.0 (>60); GLUCOSE, FASTING 119 MG/DL (60-100); POTASSIUM SERUM 4.4 MMOL/L (3.5-5.1); SODIUM LEVEL 138 MMOL/L (136-145); TOTAL PROTEIN 6.9 G/DL (5.7-8.2)
[2023-07-19] MEDS: ONDANSETRON 4MG 2ML VIAL IV ONE (21:37)
[2023-07-19] MEDS: NS 1,000 ML IV ONE (21:37)
[2023-07-19] MEDS: MORPHINE 4 MG/ML 1ML VIAL IV ONE (21:38)
[2023-07-19] MEDS: diazePAM 10MG/2ML SYRINGE IV ONE (22:43)
[2023-07-19] MEDS ORDERED: PERCOCET PO (23:12)
[2023-07-19] MEDS ORDERED: CYCL-707 PO (23:12)
[2023-07-20 00:20] VITALS: BP 113/74; TEMP 98.4; O2SAT 99
== END 2023-07-20 00:25 | disposition home or self-care (01) ==
LOC: M ED 19:32
DX: S70.11XA Contusion of right thigh, initial encounter (principal); M62.830 Muscle spasm of back; V03.10XA Pedestrian on foot injured in collision with car, pick-up truck or van in traffic accident, initial encounter; F17.200 Nicotine dependence, unspecified, uncomplicated; Z79.810 Long term (current) use of selective estrogen receptor modulators (SERMs); Z79.1 Long term (current) use of non-steroidal anti-inflammatories (NSAID); Z79.899 Other long term (current) drug therapy; Y92.410 Unspecified street and highway as the place of occurrence of the external cause; Y93.89 Activity, other specified; Y99.9 Unspecified external cause status
CPT/HCPCS: 70450; 72125; 72128; 72131; 73502; 80047; 80053; 83690; 85025; 96361; 96374; 96375; 99284; J2405; J3360

== ENCOUNTER → 2023-09-07 | Outpatient (CLI) | payer OTHER ==
[~2023-09-07] MED LIST changes: +CYCL-707 PO
[2023-09-07 11:00] LABS: BASO # 0.1 10^3/uL (0.0-0.2); BASO % 0.5 % (0.0-1.0); EOS # 0.3 10^3/uL (0.0-0.5); EOS % 3.1 % (0.0-3.0); HEMOGLOBIN 16.3 g/dl (12.0-15.5); LYMPH # 2.3 10^3/uL (1.5-5.0); LYMPH % 24.4 % (24.0-44.0); MEAN CORPUSCULAR HEMOGLOBIN 29.8 pg (27.0-33.0); MEAN CORPUSCULAR VOLUME 87.8 fl (80.0-96.0); MONO # 0.5 10^3/uL (0.0-0.8); MONO % 5.7 % (2.0-8.0); NEUTROPHILS # 6.1 10^3/uL (1.5-8.5); NEUTROPHILS % 66.2 % (36.0-66.0); PLATELET COUNT, AUTOMATED 283 10^3/uL (150-450); RED BLOOD COUNT 5.47 10^6/uL (4.00-5.40); WHITE BLOOD COUNT 9.3 10^3/uL (4.0-10.0)
[2023-09-07 11:35] LABS: ALBUMIN 3.7 G/DL (3.2-5.2); ALKALINE PHOSPHATASE 95 U/L (46-116); ALT/SGPT 18 U/L (7.0-40); AST/SGOT 13 U/L (<34); BILIRUBIN,TOTAL 0.2 MG/DL (0.3-1.2); BLOOD UREA NITROGEN 9 MG/DL (9-23); CALCIUM LEVEL 9.5 MG/DL (8.5-10.1); CARBON DIOXIDE LEVEL 28 MMOL/L (20-31); CHLORIDE LEVEL 104 MMOL/L (98-107); CHOLESTEROL LEVEL 181 MG/DL (<200); CHOLESTEROL RISK RATIO 5.65 (<5); CREATININE FOR GFR 0.68 MG/DL (0.55-1.30); GLOMERULAR FILTRATION RATE > 60.0 (>60); GLUCOSE, FASTING 104 MG/DL (60-100); LDL CHOLESTEROL 117.4 MG/DL (<100); POTASSIUM SERUM 4.4 MMOL/L (3.5-5.1); SODIUM LEVEL 138 MMOL/L (136-145); TOTAL PROTEIN 7.3 G/DL (5.7-8.2); TRIGLYCERIDES LEVEL 158 MG/DL (<150)
[2023-09-07 11:39] LABS: TOTAL 25(OH) VITAMIN D 9.1 NG/ML (20.0-100.0)
[2023-09-07 11:40] LABS: THYROID STIMULATING HORMONE 2.191 uIU/ML (0.55-4.78)
[2023-09-07 11:54] LABS: HEMOGLOBIN A1c 5.5 % (4.0-6.0)
[2023-09-08 08:12] LABS: RUBEOLA IgG ANTIBODY 15.1 AU/mL (Immune >16.4)
== END ==
LOC: M LAB 10:00
PROVIDERS: ATTEND Nurse Practitioner Family
DX: Z02.1 Encounter for pre-employment examination (principal)

== ENCOUNTER → 2023-12-14 | Outpatient (REF) | payer OTHER | LOC: M LAB REF 12:34 | PROVIDERS: ATTEND Physician Assistant | DX: J02.9 Acute pharyngitis, unspecified (principal) ==

== ENCOUNTER 2024-01-06 17:14 | Emergency (ER) | payer OTHER ==
[~2024-01-06] VITALS: Ht 157.5 cm; Wt 100.0 kg
[2024-01-06 18:00] VITALS: BP 128/72; TEMP 98.5; O2SAT 97
[2024-01-06] MEDS: ACETAMINOPHEN 325 MG TAB PO ONE (22:40)
== END 2024-01-06 22:52 | disposition home or self-care (01) ==
LOC: EDBD 17:14 → M ED 17:14
DX: S80.02XA Contusion of left knee, initial encounter (principal); S00.93XA Contusion of unspecified part of head, initial encounter; Y92.9 Unspecified place or not applicable; Y93.9 Activity, unspecified; Y99.9 Unspecified external cause status; Z79.1 Long term (current) use of non-steroidal anti-inflammatories (NSAID); Z79.899 Other long term (current) drug therapy

== ENCOUNTER → 2024-06-02 | Outpatient (REF) | payer OTHER | LOC: M LAB REF 12:14 | PROVIDERS: ATTEND Physician Assistant | DX: B34.9 Viral infection, unspecified (principal) ==

== ENCOUNTER → 2025-03-08 | Outpatient (REF) | payer OTHER ==
[2025-03-08 18:30] LABS: APPEARANCE, URINE HAZY (CLEAR); BACTERIA, URINE AUTO NEGATIVE (NEGATIVE); BILIRUBIN, URINE AUTO NEGATIVE (NEGATIVE); BLOOD, URINE BLOOD NEGATIVE (NEGATIVE); GLUCOSE, URINE (UA) AUTO NEGATIVE (NEGATIVE); KETONE, URINE AUTO NEGATIVE (NEGATIVE); LEUKOCYTE ESTERASE, URINE AUTO NEGATIVE (NEGATIVE); MUCUS, URINE SMALL (NEGATIVE); NITRITE, URINE AUTO NEGATIVE (NEGATIVE); PROTEIN, URINE AUTO NEGATIVE (NEGATIVE); RBC, URINE AUTO 1 /HPF (0-3); SPECIFIC GRAVITY URINE AUTO 1.021 (1.002-1.035); SQUAMOUS EPITHELIAL CELL UR AU 5 /HPF (0-6); UROBILINOGEN, URINE AUTO 0.2 mg/dL (0.0-2.0); WBC, URINE AUTO 2 /HPF (0-3)
[2025-03-08 20:32] LABS: Trichomonas vaginalis (AMP) NOT DETECTED (NEGATIVE)
[2025-03-08 20:55] LABS: GC DNA AMPLIFICATION NEGATIVE (NEGATIVE)
== END ==
LOC: M LAB REF 17:08
PROVIDERS: ATTEND Physician Assistant
DX: Z20.2 Contact with and (suspected) exposure to infections with a predominantly sexual mode of transmission (principal)